=== PATIENT | male | born 1945 | race Caucasian/White ===

== ENCOUNTER 2018-04-01 16:26 | Inpatient (IN) ==
--- NOTE | 2018-04-01 16:48 | Emergency Department Note ---
ED Disposition Clinical Impression: Pneumonia, Pleural effusion, Elevated brain natriuretic peptide (BNP) level, Renal insufficiency Disposition: Admitted as Observation Condition on Discharge: Good Referrals: Dion Torres MD [Primary Care Provider] - - Critical Care Critical Care Time: No Attestation: On , the high probability of a clinically significant, sudden or life threatening deterioration of the following system(s) required my full and direct attention, intervention and personal management. The time I documented below is in addition to time spent performing reported procedures but includes the following listed in this critical care notation. Medical Decision Making - Medical Records MR Comment: 546pm cipriano Wolff pt has appointment tommorrow with Margarita MAHONEY, but has not seen Margarita yet. Accepts in admission for Margarita MAHONEY. IVF and antibiotics. - Francis Inquiry Pt receiving controlled substance: No Vital Signs: 04/01/18 16:33 Temperature 97.8 F Temperature Source Oral Pulse Rate [Right Radial] 65 Respiratory Rate 22 Blood Pressure [Right Arm] 109/84 Blood Pressure Mean [Right Arm] 92 Blood Pressure Source [Right Arm] Automatic Cuff Blood Pressure Position [Right Arm] Sitting 02 Sat by Pulse Oximetry 99 Oxygen Delivery Method Room Air - Lab Data Lab Results 04/01/18 16:45: WBC 12.7 H, RBC 4.09 L, Hgb 11.7 L, Hct 38.0 L, MCV 93.0, MCH 28.6, MCHC 30.8 L, RDW 14.9, Plt Count 419, MPV 8.6, Neut % (Auto) 80.1 H, Lymph % (Auto) 13.5, [place] % (Auto) 5.1, Eos % (Auto) 1.0, Baso % (Auto) 0.3, Neut # (Auto) 10.1 H, Lymph # (Auto) 1.7, [place] # (Auto) 0.7, Eos # (Auto) 0.1, Baso # (Auto) 0.0 04/01/18 16:45: PT 12.3 H, INR 1.14 H, APTT 31.6 04/01/18 16:45: Sodium 133 L, Potassium 4.2, Chloride 99, Carbon Dioxide 24, Anion Gap 14.2, BUN 66 H, Creatinine 1.74 H, Estimated Creat Clear 32, Estimated GFR 39 L, Est GFR ( Amer) 47 L, Glucose 261 H, Calcium 9.6, Total Bilirubin 0.5, AST 23, ALT 22, Alkaline Phosphatase 142 H, Troponin I 0.06 , Total Protein 7.2, Albumin 2.6 L, Globulin 4.6 H, Albumin/Globulin Ratio 0.6 L , Lipase 153 04/01/18 16:45: B-Natriuretic Peptide 1190 H Result diagrams: 04/01/18 16:45 04/01/18 16:45 Orders (Tests/Meds): ED MEDICATIONS Generic Name Dose Route Start Last Admin Trade Name Lanre PRN Reason Stop Dose Admin Sodium Chloride 1,000 mls @ 999 mls/hr 04/01/18 17:30 Sod Chlor 0.9% 1000ml Bag IV 04/01/18 18:30 .[id number] ARIEL Levofloxacin/Dextrose 750 mg in 150 mls @ 100 mls/hr 04/01/18 17:45 Levofloxacin 750mg/150ml Premix IV 04/15/18 17:44 Q24H ARIEL Protocol ORDERS Category Date Time Status Lactic Acid Stat Lab 04/01/18 17:40 Ordered Urinalysis and Microscopic Stat Lab 04/01/18 16:50 Ordered Blood Culture Stat Micro 04/01/18 17:40 Ordered General Adult HPI - General Stated complaint: weakness,Sugar is High Time Seen by Provider: 04/01/18 16:42 - History of Present Illness HPI narrative: Patient is brought in for weakness he has become weak all over for the past does also get some chronic weakness and chronic weight loss that happened over the past year. He states he is so weak. He slid out of a chair and was not able to get back up. No focal weakness no falls no trauma. He states he has a minimal cough he denies any pain no headache chest pain or abdominal pain. No urinary complaints just progressive weakness and malaise and his sugars have been elevated as well - Related Data Home Medications Medication Instructions Recorded Confirmed Apixaban [Eliquis] 2.5 mg PO BID 04/01/18 04/01/18 Ascorbic Acid [Vitamin C] 500 mg PO DAILY 04/01/18 04/01/18 Aspirin [Aspirin 81mg EC Tab] 81 mg PO DAILY 04/01/18 04/01/18 Duloxetine HCl 60 mg PO DAILY 04/01/18 04/01/18 Gabapentin [Gabapentin 400mg Cap] 400 mg PO BID 04/01/18 04/01/18 Insulin Glargine,Hum.rec.anlog 32 unit SQ DAILY 04/01/18 04/01/18 [[place] Solostar] Minocycline HCl [Minocin 100mg 100 mg PO DAILY 04/01/18 04/01/18 capsule] Multivit with Iron-Minerals 1 each PO DAILY 04/01/18 04/01/18 [Centravites 50 Plus] Simvastatin [Zocor] 20 mg PO DAILY 04/01/18 04/01/18 Tamsulosin HCl [Flomax 0.4mg 0.4 mg PO HS 04/01/18 04/01/18 capsule] Zinc Sulfate [Zinc Sulfate 220mg 220 mg PO DAILY 04/01/18 04/01/18 capsule] Allergies Allergy/AdvReac Type Severity Reaction Status Date / Time No Known Allergies Allergy Verified 04/01/18 16:43 [facility] History I have reviewed the patient's past medical history: Yes ROS Obtained: Yes All systems reviewed & no additional complaints Physical Exam General Appearance: Nontoxic Head: Normocephalic, without obvious abnormality, atraumatic. Eyes: conjunctiva/corneas clear ENT: Mucous membranes dry. Neck: No jugular venous distention. Cardiac: regular rate and rhythm Lungs: Clear to auscultation bilaterally Abdomen: Nontender, Nondistended, positive bowel sounds, no rebound : No CVA tenderness Extremities: no edema Musculoskeletal: No chest wall tenderness Skin: No rashes or lesions to exposed skin. Neurologic: Alert. Alert and oriented x3 Cranial nerves intact Strength 5 out of 5 Sensation intact to light touch Psychiatric: Normal affect - General General appearance: alert - Respiratory Respiratory exam: Present: normal lung sounds bilaterally - Cardiovascular Cardiovascular exam: Present: regular rate - Neurological Exam Neurological exam: Present: alert
[2018-04-01 17:04] LABS: Basophils % 0.3 % (0.1-2.0); Eosinophils # 0.1 K/mm3 (0.0-0.4); Hemoglobin 11.7 g/dL (14.1-18.0); Lymphocytes # 1.7 K/mm3 (0.7-4.5); Lymphocytes % 13.5 K/mm3 (10-50); Mean Corpuscular HGB Conc 30.8 g/dL (31.8-35.4); Mean Corpuscular Hemoglobin 28.6 pg (27.0-31.2); Mean Platelet Volume 8.6 fl (7.4-10.4); Monocytes # 0.7 K/mm3 (0.1-1.0); Monocytes % 5.1 % (1.7-9.3); Neutrophils # 10.1 K/mm3 (1.8-7.8); Neutrophils % 80.1 % (37.0-80.0); Platelet Count 419 K/mm3 (142-424); Red Blood Count 4.09 M/mm3 (4.60-6.20); Red Cell Distribution Width 14.9 % (11.5-17.5); White Blood Count 12.7 K/mm3 (4.8-10.8)
[2018-04-01 17:10] LABS: Activated Partial Thrombo Time 31.6 seconds (23.6-34.0); INR 1.14 (0.9-1.1); Prothrombin Time 12.3 seconds (9.4-11.8)
[2018-04-01 17:16] LABS: Albumin Level 2.6 gm/dL (3.4-5.0); Albumin/Globulin Ratio 0.6 (1.1-1.8); Anion Gap 14.2 mEq/L (5-15); Bilirubin,Total 0.5 mg/dL (0.2-1.0); Calcium 9.6 mg/dL (8.5-10.1); Globulin 4.6 gm/dl (1.3-3.2); Potassium 4.2 mmoL/L (3.5-5.1); Total Protein,Serum 7.2 gm/dL (6.4-8.2)
--- NOTE | 2018-04-01 21:50 | Pharmacy Consult Notes ---
[facility] Pharmacy VTE Monitoring - Patient Demographics Admission date: 04/01/18 Report Date: 04/01/18 Time: 21:50 Allergies/Adverse Reactions: Patient Allergies No Known Allergies Allergy (Verified 04/01/18 16:43) Height: 1.85 m Weight: 61.235 kg Patient Problems: Current Active Problems Pneumonia (Acute) Pleural effusion (Acute) Elevated brain natriuretic peptide (BNP) level (Acute) Renal insufficiency (Acute) - VTE Risk Labs: VTE Related Lab Results Hgb 11.7 g/dL (14.1-18.0) L 04/01/18 16:45 Hct 38.0 % (42.0-52.0) L 04/01/18 16:45 Plt Count 419 K/mm3 (142-424) 04/01/18 16:45 PT 12.3 seconds (9.4-11.8) H 04/01/18 16:45 INR 1.14 (0.9-1.1) H 04/01/18 16:45 APTT 31.6 seconds (23.6-34.0) 04/01/18 16:45 BUN 66 mg/dL (7-18) H 04/01/18 16:45 Creatinine 1.74 mg/dL (0.70-1.30) H 04/01/18 16:45 Estimated Creat Clear 32 mL/min (0-300) 04/01/18 16:45 Was VTE Risk Assessment Performed: Yes VTE Score: 6 VTE Risk Level: Moderate Risk Clinical Trial Participant: No - Prophylaxis VTE Prophylaxis Ordered?: Yes Types of VTE Prophylaxis: TEDS Knee High
[2018-04-02 04:43] LABS: Appearance,Urine CLEAR (Clear); Bilirubin,Urine Negative (Negative); Blood, Urine 1+ (Negative); Color,Urine YELLOW (Yellow); Glucose,Urine (UA) TRACE (Negative); Ketones,Urine Negative (Negative); Leukocyte Esterase,Urine 1+ (Negative); Microscopic, Urine URINE MICROSCOPIC (MICROSCOPIC); PH,Urine 5.5 (5.0-8.5); Protein,Urine 1+ (Negative); Urobilinogen,Urine 0.2 EU/dl (0.2)
[2018-04-02 04:55] LABS: Bacteria,Urine 1+ /lpf; Squamous Epithelial Cell,Urine Occasional #/hpf (0-5)
[2018-04-02 06:14] LABS: Albumin Level 2.1 gm/dL (3.4-5.0); Albumin/Globulin Ratio 0.5 (1.1-1.8); Anion Gap 11.1 mEq/L (5-15); Bilirubin,Total 0.4 mg/dL (0.2-1.0); Calcium 8.9 mg/dL (8.5-10.1); Potassium 4.1 mmoL/L (3.5-5.1); Total Protein,Serum 6.1 gm/dL (6.4-8.2)
--- NOTE | 2018-04-02 07:54 | History & Physical Report ---
*Admission Date: 04/01/18 *Chief complaint: Shortness of air/fatigue *History of present illness: 72-year-old white male who recently moved from [place] to live with his daughter and son-in-law, who has a long medical history of cardiac dysrhythmia status post pacemaker implantation and worsening weakness and senile cachexia with protein calorie malnutrition, who was brought to the emergency department because of lethargy, fatigue, dyspnea and cough. In the emergency department he was found to have a pleural effusion bilaterally , evidence of COPD-of which he is unaware-and elevated BNP levels with pulmonary infiltrate. He was also found to be hyperglycemic -does have type 2 diabetes. He was admitted for IV antibiotics, pulmonary toilet, IV fluids given his acute kidney injury. [facility] History Medical History: Reports:: Arrhythmia, Atherosclerotic Heart Disease, Atrial Fibrillation, Cardiomyopathy, Congestive Heart Failure, Coronary Artery Disease , Diabetes Mellitus Type 2, Heart Murmur, Internal Pacemaker, Myocardial Infarction, Palpitations, Peripheral Artery Disease Denies:: Cancer, Diabetes Mellitus Type 1, MRSA Other Medical History: Reports: Cataracts, Glaucoma, Hoarseness Laterality Cases: Bilateral: Tonsillectomy Other Surgeries: Yes: CABG, Open Heart Surgery, Pacemaker Amputation: No Fractures: No - *Social History Smoking Status: Current every day smoker Tobacco Type: cigarettes # Packs/Day (cigarettes): 1 Alcohol Intake: never Alcohol Intake Frequency:: holidays/special occasions only Occupational Status: retired Housing: apartment Household Members: none - Psychiatric History Expresses thoughts of harming self/others: None Suicide Plan Description: No Plan *Family Hx:: No significant family history Review of Systems - Constitutional Reports anorexia, Reports body ache(s), Denies chills, Denies daytime sleepiness - Eyes Denies blind spots, Denies blurry vision, Denies change in vision - ENT Denies abnormal hearing, Denies bleeding gums - *Cardiovascular Reports shortness of breath, Reports shortness of breath with activity, Reports shortness of breath when lying down, Denies chest pain, Denies chest pain at rest, Denies irregular heart rhythm - *Respiratory Reports chest congestion, Reports cough, Reports shortness of breath, Denies change in phlegm color - *Gastrointestinal Denies abdominal pain, Denies belching - *Genitourinary Denies difficulty urinating - *Musculoskeletal Denies abnormal walking, Denies joint pain - *Neurologic Reports abnormal walking, Reports frequent falls, Reports weakness, Denies seizure-like activity Meds Home Medications Medication Instructions Recorded Confirmed Type Apixaban [Eliquis] 2.5 mg PO BID 04/01/18 04/01/18 History Ascorbic Acid [Vitamin C] 1,000 mg PO DAILY 04/01/18 04/01/18 History Aspirin [Aspirin 81mg EC Tab] 81 mg PO DAILY 04/01/18 04/01/18 History Duloxetine HCl 60 mg PO DAILY 04/01/18 04/01/18 History Gabapentin [Gabapentin 400mg Cap] 400 mg PO BID 04/01/18 04/01/18 History Insulin Glargine,Hum.rec.anlog 32 unit SQ DAILY 04/01/18 04/01/18 History [[place] Solostar] Minocycline HCl [Minocin 100mg 100 mg PO DAILY 04/01/18 04/01/18 History capsule] Multivit with Iron-Minerals 1 each PO DAILY 04/01/18 04/01/18 History [Centravites 50 Plus] Simvastatin [Zocor] 20 mg PO HS 04/01/18 04/01/18 History Tamsulosin HCl [Flomax 0.4mg 0.4 mg PO HS 04/01/18 04/01/18 History capsule] Zinc Sulfate [Zinc Sulfate 220mg 220 mg PO DAILY 04/01/18 04/01/18 History capsule] Allergies Allergy/AdvReac Type Severity Reaction Status Date / Time No Known Allergies Allergy Verified 04/01/18 16:43 Exam Vital signs and Labs for Last 24 Hours: Temp Pulse Resp BP Pulse Ox 98.2 F 60 20 135/72 99 04/02/18 07:18 04/02/18 07:18 04/02/18 07:18 04/02/18 07:18 04/02/18 07:18 Laboratory Results - last 24 hr 04/01/18 16:45: WBC 12.7 H, RBC 4.09 L, Hgb 11.7 L, Hct 38.0 L, MCV 93.0, MCH 28.6, MCHC 30.8 L, RDW 14.9, Plt Count 419, MPV 8.6, Neut % (Auto) 80.1 H, Lymph % (Auto) 13.5, [place] % (Auto) 5.1, Eos % (Auto) 1.0, Baso % (Auto) 0.3, Neut # (Auto) 10.1 H, Lymph # (Auto) 1.7, [place] # (Auto) 0.7, Eos # (Auto) 0.1, Baso # (Auto) 0.0 04/01/18 16:45: PT 12.3 H, INR 1.14 H, APTT 31.6 04/01/18 16:45: Sodium 133 L, Potassium 4.2, Chloride 99, Carbon Dioxide 24, Anion Gap 14.2, BUN 66 H, Creatinine 1.74 H, Estimated Creat Clear 32, Estimated GFR 39 L, Est GFR ( Amer) 47 L, Glucose 261 H, Calcium 9.6, Total Bilirubin 0.5, AST 23, ALT 22, Alkaline Phosphatase 142 H, Troponin I 0.06 , Total Protein 7.2, Albumin 2.6 L, Globulin 4.6 H, Albumin/Globulin Ratio 0.6 L , Lipase 153 04/01/18 16:45: B-Natriuretic Peptide 1190 H 04/01/18 18:04: Lactic Acid 1.2 04/02/18 04:34: Urine Color Yellow, Urine Appearance Clear, Urine pH 5.5, Ur Specific [place] 1.020, Urine Protein 1+, Urine Glucose (UA) Trace, Urine Ketones Negative, Urine Blood 1+, Urine Nitrate Negative, Urine Bilirubin Negative, Urine Urobilinogen 0.2, Ur Leukocyte Esterase 1+ A, Urine RBC 5-10, Urine WBC 10-20, Ur Squamous Epith Cells Occasional, Urine Bacteria 1+ 04/02/18 05:20: Sodium 136, Potassium 4.1, Chloride 103, Carbon Dioxide 26, Anion Gap 11.1, BUN 56 H, Creatinine 1.48 H, Estimated Creat Clear 38, Estimated GFR 46 L, Est GFR ( Amer) 56 L, Glucose 185 H D, Calcium 8.9, Magnesium 1.5, Total Bilirubin 0.4, AST 22, ALT 23, Alkaline Phosphatase 116, Total Protein 6.1 L, Albumin 2.1 L D, Globulin 4.0 H, Albumin/Globulin Ratio 0.5 L 04/02/18 06:13: POC Glucose 190 H I & O for Last 24 hours: Intake & Output 05/03/31/18 04/01/18 04/02/18 11:59 11:59 11:59 11:59 Output Total 500 / 500 Balance -500 / -500 Weight 135 lb Narrative: Patient appears frail, but is alert, oriented 3 and states he feels better than yesterday on ER presentation. Lungs have rhonchi in both lower lung mello, some diminished air movement in both bases. Heart rate regular with 2/6 holosystolic murmur. Pacemaker site in the left upper chest wall is intact. Abdomen is soft and scaphoid. He has no edema or clubbing noted. No perfusion deficits. Able to move all 4 extremities equally. Is globally weak however. Cranial nerves are intact. H&P: Result - Labs Labs: Short CBC 04/01/18 Range/Units 16:45 WBC 12.7 H (4.8-10.8) K/mm3 Hgb 11.7 L (14.1-18.0) g/dL Hct 38.0 L (42.0-52.0) % Plt Count 419 (142-424) K/mm3 BMP 04/01/18 04/02/18 16:45 05:20 Sodium 133 L 136 Potassium 4.2 4.1 Chloride 99 103 Carbon Dioxide 24 26 BUN 66 H 56 H Creatinine 1.74 H 1.48 H Glucose 261 H 185 H D Calcium 9.6 8.9 Cardiac Enzymes 04/01/18 Range/Units 16:45 Troponin I 0.06 (0.00-0.06) ng/ml Liver Function 04/01/18 04/02/18 Range/Units 16:45 05:20 Total Bilirubin 0.5 0.4 (0.2-1.0) mg/dL AST 23 22 (15-37) U/L ALT 22 23 (12-78) U/L Alkaline Phosphatase 142 H 116 (46-116) U/L Albumin 2.6 L 2.1 L D (3.4-5.0) gm/dL Urine 04/02/18 Range/Units 04:34 Urine Color Yellow (Yellow) Urine Appearance Clear (Clear) Urine pH 5.5 (5.0-8.5) Ur Specific [place] 1.020 (1.005-1.030) Urine Protein 1+ (Negative) Urine Glucose (UA) Trace (Negative) Assessment and Plan (1) Acute kidney injury Current visit: Yes Status: Acute Category: Medical Code(s): N17.9 - Acute kidney failure, unspecified Improving this morning on lab work. Continue to follow with labs tomorrow. (2) Insulin-requiring or dependent type II diabetes mellitus Current visit: Yes Status: Acute Category: Medical Code(s): E11.9 - Type 2 diabetes mellitus without complications; Z79.4 - group home (current) use of insulin Glucose improving overnight. Continue to observe. (3) COPD (chronic obstructive pulmonary disease) Current visit: Yes Status: Acute Category: Medical Code(s): J44.9 - Chronic obstructive pulmonary disease, unspecified Patient unaware of diagnosis. Clearly has COPD pattern. Start inhaler, check CT scan given abnormal findings and long history of smoking. (4) Elevated brain natriuretic peptide (BNP) level Current visit: Yes Status: Acute Category: Medical Code(s): R79.89 - Other specified abnormal findings of blood chemistry Possible CHF given his BNP levels and pleural effusions. Check echocardiogram. (5) Pleural effusion Current visit: Yes Status: Acute Category: Medical Code(s): J90 - Pleural effusion, not elsewhere classified Plan as above. (6) Pneumonia Current visit: Yes Status: Acute Category: Medical Code(s): J18.9 - Pneumonia, unspecified organism Continue current Levaquin therapy.
--- NOTE | 2018-04-03 06:03 | Progress Note ---
Internal Medicine - PN: Subj *Date: 04/03/18 *Time: 06:01 Interval history: Patient ate well yesterday, breathing is somewhat better. Exam Vital signs and Labs for Last 24 Hours: Temp Pulse Resp BP Pulse Ox 97.1 F L 63 20 124/53 96 04/03/18 04:00 04/03/18 04:00 04/03/18 04:00 04/03/18 04:00 04/03/18 04:00 Laboratory Results - last 24 hr 04/02/18 05:20: Sodium 136, Potassium 4.1, Chloride 103, Carbon Dioxide 26, Anion Gap 11.1, BUN 56 H, Creatinine 1.48 H, Estimated Creat Clear 38, Estimated GFR 46 L, Est GFR ( Amer) 56 L, Glucose 185 H D, Calcium 8.9, Magnesium 1.5, Total Bilirubin 0.4, AST 22, ALT 23, Alkaline Phosphatase 116, Total Protein 6.1 L, Albumin 2.1 L D, Globulin 4.0 H, Albumin/Globulin Ratio 0.5 L 04/02/18 06:13: POC Glucose 190 H 04/02/18 11:30: POC Glucose 245 H 04/02/18 16:24: POC Glucose 128 H 04/02/18 20:27: POC Glucose 115 H I & O for Last 24 hours: Intake & Output 03/31/18 04/01/18 04/02/18 04/03/18 11:59 11:59 11:59 11:59 Intake Total 2025 / 2025 Output Total 500 / 500 1500 / 1500 Balance -500 / -500 526 / 526 Weight 135 lb 135 lb 0.001 oz Microbiology Reports for the Last 24 Hours: Microbiology 04/02/18 04:34 Urine,Clean Catch Urine Culture - Preliminary NO GROWTH AFTER 24 HOURS Narrative: Sleeping comfortably, when awakened feels good, no complaints. Lungs have much better air entry bilaterally, heart rate regular. Appears less dehydrated. Abdomen soft. Assessment and Plan (1) Acute kidney injury Current visit: Yes Status: Acute Category: Medical Code(s): N17.9 - Acute kidney failure, unspecified (2) Insulin-requiring or dependent type II diabetes mellitus Current visit: Yes Status: Acute Category: Medical Code(s): E11.9 - Type 2 diabetes mellitus without complications; Z79.4 - terminal system operator (current) use of insulin (3) COPD (chronic obstructive pulmonary disease) Current visit: Yes Status: Acute Category: Medical Code(s): J44.9 - Chronic obstructive pulmonary disease, unspecified (4) Elevated brain natriuretic peptide (BNP) level Current visit: Yes Status: Acute Category: Medical Code(s): R79.89 - Other specified abnormal findings of blood chemistry (5) Pleural effusion Current visit: Yes Status: Acute Category: Medical Code(s): J90 - Pleural effusion, not elsewhere classified (6) Pneumonia Current visit: Yes Status: Acute Category: Medical Code(s): J18.9 - Pneumonia, unspecified organism - Assessment and plan all Dx Assessment and Plan for all problems:: Patient improving. Continue current therapy/antibiotics for pneumonia. PT consult reviewed. Patient is interested in pursuing a short-term rehabilitation stay for weakness. Care management consultation. I reviewed CT report showing round pneumonia versus mass. I did not discuss this with the patient as of yet. He will need a pulmonary consultation.
[2018-04-03 06:55] LABS: Basophils % 0.1 % (0.1-2.0); Eosinophils # 0.1 K/mm3 (0.0-0.4); Eosinophils % 0.5 % (0.1-12.0); Hematocrit 38.4 % (42.0-52.0); Hemoglobin 11.5 g/dL (14.1-18.0); Lymphocytes # 1.3 K/mm3 (0.7-4.5); Lymphocytes % 9.7 K/mm3 (10-50); Mean Corpuscular HGB Conc 29.9 g/dL (31.8-35.4); Mean Corpuscular Hemoglobin 28.5 pg (27.0-31.2); Mean Corpuscular Volume 95.3 fl (80-94); Mean Platelet Volume 8.7 fl (7.4-10.4); Monocytes # 0.7 K/mm3 (0.1-1.0); Neutrophils % 84.7 % (37.0-80.0); Platelet Count 344 K/mm3 (142-424); Red Blood Count 4.03 M/mm3 (4.60-6.20); Red Cell Distribution Width 14.8 % (11.5-17.5)
[2018-04-03 07:10] LABS: Albumin Level 2.4 gm/dL (3.4-5.0); Albumin/Globulin Ratio 0.6 (1.1-1.8); Anion Gap 11.4 mEq/L (5-15); Bilirubin,Total 0.4 mg/dL (0.2-1.0); Calcium 9.3 mg/dL (8.5-10.1); Globulin 4.2 gm/dl (1.3-3.2); Potassium 4.4 mmoL/L (3.5-5.1); Total Protein,Serum 6.6 gm/dL (6.4-8.2)
--- NOTE | 2018-04-04 08:03 | Progress Note ---
Internal Medicine - PN: Subj *Date: 04/04/18 *Time: 08:02 Interval history: Patient overall feels better, eating well, no complaints of pain. Breathing is improved. Exam Vital signs and Labs for Last 24 Hours: Temp Pulse Resp BP Pulse Ox 98.2 F 60 20 143/73 96 04/04/18 07:18 04/04/18 07:18 04/04/18 07:18 04/04/18 07:18 04/04/18 07:18 Laboratory Results - last 24 hr 04/03/18 11:14: POC Glucose 218 H 04/03/18 16:37: POC Glucose 232 H 04/03/18 20:47: POC Glucose 178 H 04/04/18 06:09: POC Glucose 136 H I & O for Last 24 hours: Intake & Output 04/01/18 04/02/18 04/03/18 04/04/18 11:59 11:59 11:59 11:59 Intake Total 6 / 2026 2521 / 2521 Output Total 500 / 500 1500 / 1500 1200 / 1200 Balance -500 / -500 526 / 526 1321 / 1321 Weight 135 lb 135 lb 0.001 oz Microbiology Reports for the Last 24 Hours: Microbiology 04/01/18 18:04 Blood Blood Culture - Preliminary NO GROWTH AFTER 48 HOURS 04/01/18 18:04 Blood Blood Culture - Preliminary NO GROWTH AFTER 48 HOURS 04/02/18 04:34 Urine,Clean Catch Urine Culture - Final Multiple organisms, suggests contamination. Narrative: Patient appears weak still, and cachectic. Lungs are better with only minimal rhonchi in both bases. Heart rate regular. Abdomen soft and nontender. Assessment and Plan (1) Acute kidney injury Current visit: Yes Status: Acute Category: Medical Code(s): N17.9 - Acute kidney failure, unspecified (2) Insulin-requiring or dependent type II diabetes mellitus Current visit: Yes Status: Acute Category: Medical Code(s): E11.9 - Type 2 diabetes mellitus without complications; Z79.4 - [facility] (current) use of insulin (3) COPD (chronic obstructive pulmonary disease) Current visit: Yes Status: Acute Category: Medical Code(s): J44.9 - Chronic obstructive pulmonary disease, unspecified (4) Elevated brain natriuretic peptide (BNP) level Current visit: Yes Status: Acute Category: Medical Code(s): R79.89 - Other specified abnormal findings of blood chemistry (5) Pleural effusion Current visit: Yes Status: Acute Category: Medical Code(s): J90 - Pleural effusion, not elsewhere classified (6) Pneumonia Current visit: Yes Status: Acute Category: Medical Code(s): J18.9 - Pneumonia, unspecified organism (7) Pulmonary mass Current visit: Yes Status: Acute Category: Medical Code(s): R91.8 - Other nonspecific abnormal finding of lung field Overall patient is improving. CT scan showed pulmonary mass -just with patient. He reports having a [facility] CAT scan at [facility] perhaps 1 year ago. We will try to get these records. Pulmonary consultation for bronchoscopy given his high risk for pulmonary malignancy. Echocardiogram today given his history of atrial fibrillation and pleural effusions.
[2018-04-05 07:12] LABS: Basophils % 0.2 % (0.1-2.0); Eosinophils # 0.1 K/mm3 (0.0-0.4); Eosinophils % 0.9 % (0.1-12.0); Hematocrit 35.5 % (42.0-52.0); Hemoglobin 10.6 g/dL (14.1-18.0); Lymphocytes # 1.2 K/mm3 (0.7-4.5); Lymphocytes % 12.5 K/mm3 (10-50); Mean Corpuscular HGB Conc 29.9 g/dL (31.8-35.4); Mean Corpuscular Hemoglobin 28.4 pg (27.0-31.2); Monocytes # 0.7 K/mm3 (0.1-1.0); Neutrophils # 7.6 K/mm3 (1.8-7.8); Neutrophils % 79.3 % (37.0-80.0); Platelet Count 316 K/mm3 (142-424); Red Blood Count 3.74 M/mm3 (4.60-6.20); Red Cell Distribution Width 14.8 % (11.5-17.5); White Blood Count 9.6 K/mm3 (4.8-10.8)
[2018-04-05 07:14] LABS: Anion Gap 14.9 mEq/L (5-15); Potassium 4.9 mmoL/L (3.5-5.1)
--- NOTE | 2018-04-05 07:43 | Progress Note ---
Internal Medicine - PN: Subj *Date: 04/05/18 *Time: 07:42 Interval history: Patient continues to feel weak, but breathing is improved. I discussed patient's CT with him and his son-in-law, and they understand the possible implications of the right lung mass. Exam Vital signs and Labs for Last 24 Hours: Temp Pulse Resp BP Pulse Ox 98.5 F 60 16 124/55 91 L 04/05/18 04:00 04/05/18 04:00 04/05/18 04:00 04/05/18 04:00 04/05/18 04:00 Laboratory Results - last 24 hr 04/03/18 06:11: POC Glucose 49 L* 04/03/18 06:13: POC Glucose 48 L* 04/04/18 12:04: POC Glucose 303 H* 04/04/18 16:48: POC Glucose 207 H 04/04/18 20:11: POC Glucose 169 H 04/05/18 06:20: WBC 9.6 D, RBC 3.74 L, Hgb 10.6 L, Hct 35.5 L, MCV 95.0 H, MCH 28.4, MCHC 29.9 L, RDW 14.8, Plt Count 316, MPV 9.0, Neut % (Auto) 79.3, Lymph % (Auto) 12.5, [place] % (Auto) 7.0, Eos % (Auto) 0.9, Baso % (Auto) 0.2, Neut # ( Auto) 7.6, Lymph # (Auto) 1.2, [place] # (Auto) 0.7, Eos # (Auto) 0.1, Baso # (Auto ) 0.0 04/05/18 06:20: Sodium 134 L, Potassium 4.9, Chloride 103, Carbon Dioxide 21 D , Anion Gap 14.9, BUN 44 H, Creatinine 1.60 H, Estimated Creat Clear 35, Estimated GFR 42 L, Est GFR ( Amer) 51 L, Glucose 176 H 04/05/18 06:32: POC Glucose 170 H I & O for Last 24 hours: Intake & Output 04/02/18 04/03/18 04/04/18 04/05/18 11:59 11:59 11:59 11:59 Intake Total 2025 / 2025 2521 / 2521 1649 / 1649 Output Total 500 / 500 1500 / 1500 1200 / 1200 1700 / 1700 Balance -500 / -500 526 / 526 1321 / 1321 -51 / -51 Weight 135 lb 135 lb 0.001 oz Narrative: Patient is very weak, needs assistance to roll over to have his posterior lung mello examined. Rhonchi bilaterally. Fairly good air entry. Heart rate regular. Abdomen soft and nontender. No edema noted. Assessment and Plan (1) Acute kidney injury Current visit: Yes Status: Acute Category: Medical Code(s): N17.9 - Acute kidney failure, unspecified (2) Insulin-requiring or dependent type II diabetes mellitus Current visit: Yes Status: Acute Category: Medical Code(s): E11.9 - Type 2 diabetes mellitus without complications; Z79.4 - custodial (current) use of insulin (3) COPD (chronic obstructive pulmonary disease) Current visit: Yes Status: Acute Category: Medical Code(s): J44.9 - Chronic obstructive pulmonary disease, unspecified (4) Elevated brain natriuretic peptide (BNP) level Current visit: Yes Status: Acute Category: Medical Code(s): R79.89 - Other specified abnormal findings of blood chemistry (5) Pleural effusion Current visit: Yes Status: Acute Category: Medical Code(s): J90 - Pleural effusion, not elsewhere classified (6) Pneumonia Current visit: Yes Status: Acute Category: Medical Code(s): J18.9 - Pneumonia, unspecified organism (7) Pulmonary mass Current visit: Yes Status: Acute Category: Medical Code(s): R91.8 - Other nonspecific abnormal finding of lung field - Assessment and plan all Dx Assessment and Plan for all problems:: Overall patient improving, continues to be very weak. We will research skilled care bed for tomorrow transfer for rehab. Pulmonary consultation tomorrow for lung mass.
--- NOTE | 2018-04-06 08:29 | Progress Note ---
Internal Medicine - PN: Subj *Date: 04/06/18 *Time: 08:29 Exam Vital signs and Labs for Last 24 Hours: Temp Pulse Resp BP Pulse Ox 97.8 F 60 18 140/84 93 L 04/06/18 07:31 04/06/18 07:31 04/06/18 07:31 04/06/18 07:31 04/06/18 07:31 Laboratory Results - last 24 hr 04/05/18 11:33: POC Glucose 307 H* 04/05/18 20:20: POC Glucose 164 H 04/06/18 06:03: POC Glucose 193 H I & O for Last 24 hours: Intake & Output 04/03/18 04/04/18 04/05/18 04/06/18 23:59 23:59 23:59 23:59 Intake Total 2176 / 2176 1561 / 1561 1569 / 1569 Output Total 1400 / 1400 1200 / 1200 500 / 500 380 / 380 Balance 776 / 776 361 / 361 1069 / 1069 -380 / -380 Assessment and Plan (1) Acute kidney injury Current visit: Yes Status: Acute Category: Medical Code(s): N17.9 - Acute kidney failure, unspecified (2) Insulin-requiring or dependent type II diabetes mellitus Current visit: Yes Status: Acute Category: Medical Code(s): E11.9 - Type 2 diabetes mellitus without complications; Z79.4 - assistant terminal manager (current) use of insulin (3) COPD (chronic obstructive pulmonary disease) Current visit: Yes Status: Acute Category: Medical Code(s): J44.9 - Chronic obstructive pulmonary disease, unspecified (4) Elevated brain natriuretic peptide (BNP) level Current visit: Yes Status: Acute Category: Medical Code(s): R79.89 - Other specified abnormal findings of blood chemistry (5) Pleural effusion Current visit: Yes Status: Acute Category: Medical Code(s): J90 - Pleural effusion, not elsewhere classified (6) Pneumonia Current visit: Yes Status: Acute Category: Medical Code(s): J18.9 - Pneumonia, unspecified organism (7) Pulmonary mass Current visit: Yes Status: Acute Category: Medical Code(s): R91.8 - Other nonspecific abnormal finding of lung field The patient's infection will respond to the chosen ABx?: Yes Is the patient receiving the right drug, dose, and route?: Yes Could a more targeted ABx be ordered?: No
--- NOTE | 2018-04-06 12:13 | Consult Report ---
*Admission Date: 04/01/18 *Chief complaint: I have some shadow on my lung. *History of present illness: Mr. 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 He had a stroke a few years ago, I believe which affected his left arm and hand. Weakness resolved but he feels that his hand is a little weaker here in the hospital. He was admitted here because of shortness of breath and weakness thought due to dehydration. However, a chest x-ray disclosed bilateral pleural effusions and a CT scan of the chest showed a right hilar mass. Mr. Bridges suffered a myocardial infarction in his late 30s and underwent a three-vessel CABG at that time. Diabetes was discovered around then , I believe has been quite difficult to control with frequent episodes of hyper and hypoglycemia. He is followed by cardiology at the [facility] and also saw an deer farmer there until a couple of years ago. Although he is breathless with ordinary activities of daily living when he is feeling good, he does take care of his home and goes out to visit friends. He normally goes to bed around 9 PM and stays up using Facebook until 3 in the morning. Then he sleeps till noon or 1. His appetite has been quite poor over the last year or 2 and he has lost more than 70 pounds. He has had no abdominal complaints other than constipation. He has little or no cough and no hemoptysis or chest pain. Mr. Bridges began smoking when he was 9 and still smokes about 1 package of cigarettes daily. [facility] History Medical History: Reports:: Arrhythmia, Atherosclerotic Heart Disease, Atrial Fibrillation, Cardiomyopathy, Congestive Heart Failure, Coronary Artery Disease , Diabetes Mellitus Type 2, Heart Murmur, Internal Pacemaker, Myocardial Infarction, Palpitations, Peripheral Artery Disease Denies:: Cancer, Diabetes Mellitus Type 1, MRSA Other Medical History: Reports: Cataracts, Glaucoma, Hoarseness Laterality Cases: Bilateral: Tonsillectomy Other Surgeries: Yes: CABG, Open Heart Surgery, Pacemaker Amputation: No Fractures: No - *Social History Smoking Status: Current every day smoker Tobacco Type: cigarettes # Packs/Day (cigarettes): 1 Alcohol Intake: never Alcohol Intake Frequency:: holidays/special occasions only Occupational Status: retired Housing: apartment Household Members: none Comment: Mr. Bridges is and lives alone. He has 2 daughters who are , 1 of whom is moving to [place] soon. He has 6 grandchildren all of whom are well. One son-in-law is with him at the bedside today. He works here at [facility] [employer]. Mr. Bridges worked for 37 years in the [employer] office at as a payroll benefits clerk. He retired when it became too stressful considering his heart disease. - Psychiatric History Expresses thoughts of harming self/others: None Suicide Plan Description: No Plan *Family Hx:: No significant family history Review of Systems - Constitutional Reports anorexia - *Cardiovascular Comments: see hpi - *Respiratory Comments: see hpi - *Gastrointestinal Comments: see hpi - *Neurologic Reports abnormal walking, Reports frequent falls, Reports weakness, Denies abnormal hearing, Denies seizure-like activity Meds Home Medications Medication Instructions Recorded Confirmed Type Apixaban [Eliquis] 2.5 mg PO BID 04/01/18 04/01/18 History Ascorbic Acid [Vitamin C] 1,000 mg PO DAILY 04/01/18 04/01/18 History Aspirin [Aspirin 81mg EC Tab] 81 mg PO DAILY 04/01/18 04/01/18 History Gabapentin [Gabapentin 400mg Cap] 400 mg PO BID 04/01/18 04/01/18 History Insulin Glargine,Hum.rec.anlog 32 unit SQ DAILY 04/01/18 04/01/18 History [[place] Solostar] Minocycline HCl [Minocin 100mg 100 mg PO DAILY 04/01/18 04/01/18 History capsule] Multivit with Iron-Minerals 1 each PO DAILY 04/01/18 04/01/18 History [Centravites 50 Plus] Simvastatin [Zocor] 20 mg PO HS 04/01/18 04/01/18 History Tamsulosin HCl [Flomax 0.4mg 0.4 mg PO HS 04/01/18 04/01/18 History capsule] Zinc Sulfate [Zinc Sulfate 220mg 220 mg PO DAILY 04/01/18 04/01/18 History capsule] Duloxetine HCl [Cymbalta 30mg 30 mg PO DAILY 04/02/18 04/02/18 History capsule] Allergies Allergy/AdvReac Type Severity Reaction Status Date / Time No Known Allergies Allergy Verified 04/01/18 16:43 Exam Vital signs and Labs for Last 24 Hours: Temp Pulse Resp BP Pulse Ox 97.7 F 61 18 151/73 95 04/06/18 11:56 04/06/18 11:56 04/06/18 11:56 04/06/18 11:56 04/06/18 11:56 Laboratory Results - last 24 hr 04/05/18 17:06: POC Glucose 199 H 04/05/18 20:20: POC Glucose 164 H 04/06/18 06:03: POC Glucose 193 H I & O for Last 24 hours: Intake & Output 04/03/18 04/04/18 04/05/18 04/06/18 23:59 23:59 23:59 23:59 Intake Total 2176 / 2176 1561 / 1561 1569 / 1569 Output Total 1400 / 1400 1200 / 1200 500 / 500 380 / 380 Balance 776 / 776 361 / 361 1069 / 1069 -380 / -380 Narrative: Mr. Bridges is a gaunt, bright eyed man who is lying in bed at 10 elevation in no acute distress. He is articulate, oriented and able to give a fairly clear history. HEENT: Prominent eyes; sclerae clear; conjunctivae pink; PERRLA; corneal arcus Neck: No JVD; no adenopathy. Chest: Symmetrical expansion; hyperresonance by percussion bilaterally; decreased breath sounds at both bases with inspiratory crackles to the mid scapula on the right. No wheezing. Abdomen: Bowel sounds diminished; soft, nontender, no masses or organomegaly. Skin: Sallow color Neurological: No asterixis; twitching of the small muscles of the hands. He can move all extremities. Musculoskeletal: Marked temporal wasting and wasting of the small muscles of the hands. Internal Medicine - CN: Reslt - Labs CBC & Chem 7: 04/05/18 06:20 04/05/18 06:20 - Imaging and Cardiology CT scan - chest Additional comments: I personally reviewed the CT scan of the chest which demonstrates a mass in the right middle lobe with distal pneumonia and evidence of subcarinal adenopathy. He has a patulous esophagus, evidence of coronary disease, bilateral pleural effusions and an AICD in place.. Assessment and Plan (1) Acute kidney injury Current visit: Yes Status: Acute Category: Medical Code(s): N17.9 - Acute kidney failure, unspecified (2) Insulin-requiring or dependent type II diabetes mellitus Current visit: Yes Status: Acute Category: Medical Code(s): E11.9 - Type 2 diabetes mellitus without complications; Z79.4 - long-term (current) use of insulin (3) COPD (chronic obstructive pulmonary disease) Current visit: Yes Status: Acute Category: Medical Code(s): J44.9 - Chronic obstructive pulmonary disease, unspecified (4) Elevated brain natriuretic peptide (BNP) level Current visit: Yes Status: Acute Category: Medical Code(s): R79.89 - Other specified abnormal findings of blood chemistry (5) Pleural effusion Current visit: Yes Status: Acute Category: Medical Code(s): J90 - Pleural effusion, not elsewhere classified (6) Pneumonia Current visit: Yes Status: Acute Category: Medical Code(s): J18.9 - Pneumonia, unspecified organism (7) Pulmonary mass Current visit: Yes Status: Acute Category: Medical Code(s): R91.8 - Other nonspecific abnormal finding of lung field - Assessment and plan all Dx Assessment and Plan for all problems:: Mr. Bridges has severe ischemic cardiomyopathy and diabetes complicated by neuropathy and chronic kidney disease. He has abnormalities on CT scan of the chest suggesting metastatic lung cancer. I discussed his wishes concerning identification of this problem and he decided he would like to know and would pursue treatment if offered. His son-in-law was in the room when he and I had this discussion. I recommended transfer to the [facility] for evaluation by pulmonary and by cardiology. Eliquis should be discontinued for a few days before bronchoscopy. He has other problems as well including anemia , the cause of which is not clear to me. I did not discuss smoking cessation with him today but would be happy to follow-up with him after further evaluation at . Thank you for the opportunity to participate in Mr. Bridges's care.
--- NOTE | 2018-04-06 14:13 | Progress Note ---
Internal Medicine - PN: Subj *Date: 04/06/18 *Time: 07:20 Interval history: Patient reports no improvement in shortness of breath. Continues to have poor appetite. Alert and oriented x3. Rate and rhythm regular. No LE edema. Lung sounds diminished throughout with scattered wheezes. Abdomen soft and nontender Exam Vital signs and Labs for Last 24 Hours: Temp Pulse Resp BP Pulse Ox 97.7 F 61 18 151/73 95 04/06/18 11:56 04/06/18 11:56 04/06/18 11:56 04/06/18 11:56 04/06/18 11:56 Laboratory Results - last 24 hr 04/05/18 17:06: POC Glucose 199 H 04/05/18 20:20: POC Glucose 164 H 04/06/18 06:03: POC Glucose 193 H 04/06/18 11:53: POC Glucose 314 H* I & O for Last 24 hours: Intake & Output 04/04/18 04/05/18 04/06/18 04/07/18 11:59 11:59 11:59 11:59 Intake Total 2671 / 2671 2049 / 2049 0 / 0 Output Total 1200 / 1200 1700 / 1700 380 / 380 Balance 1471 / 1471 349 / 349 -380 / -380 Assessment and Plan (1) Acute kidney injury Current visit: Yes Status: Acute Category: Medical Code(s): N17.9 - Acute kidney failure, unspecified (2) Insulin-requiring or dependent type II diabetes mellitus Current visit: Yes Status: Acute Category: Medical Code(s): E11.9 - Type 2 diabetes mellitus without complications; Z79.4 - retirement (current) use of insulin (3) COPD (chronic obstructive pulmonary disease) Current visit: Yes Status: Acute Category: Medical Code(s): J44.9 - Chronic obstructive pulmonary disease, unspecified (4) Elevated brain natriuretic peptide (BNP) level Current visit: Yes Status: Acute Category: Medical Code(s): R79.89 - Other specified abnormal findings of blood chemistry (5) Pleural effusion Current visit: Yes Status: Acute Category: Medical Code(s): J90 - Pleural effusion, not elsewhere classified (6) Pneumonia Current visit: Yes Status: Acute Category: Medical Code(s): J18.9 - Pneumonia, unspecified organism (7) Pulmonary mass Current visit: Yes Status: Acute Category: Medical Code(s): R91.8 - Other nonspecific abnormal finding of lung field - Assessment and plan all Dx Assessment and Plan for all problems:: Continue IV antibiotics. Dr. Morejon consult today. Transfer to [facility] verses d/c to [place] with outpatient FU at [facility] pending pulmonology consult.
[2018-04-06 15:24] VITALS: BP 141/78
--- NOTE | 2018-04-29 09:21 | Discharge Summary ---
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 He had a stroke a few years ago, I believe which affected his left arm and hand. Weakness resolved but he feels that his hand is a little weaker here in the hospital. He was admitted here because of shortness of breath and weakness thought due to dehydration. However, a chest x-ray disclosed bilateral pleural effusions and a CT scan of the chest showed a right hilar mass. Mr. Bridges suffered a myocardial infarction in his late 30s and underwent a three-vessel CABG at that time. Diabetes was discovered around then , I believe has been quite difficult to control with frequent episodes of hyper and hypoglycemia. He is followed by cardiology at the [facility] and also saw an automobile service station mechanic there until a couple of years ago. Although he is breathless with ordinary activities of daily living when he is feeling good, he does take care of his home and goes out to visit friends. He normally goes to bed around 9 PM and stays up using Facebook until 3 in the morning. Then he sleeps till noon or 1. His appetite has been quite poor over the last year or 2 and he has lost more than 70 pounds. He has had no abdominal complaints other than constipation. He has little or no cough and no hemoptysis or chest pain. Mr. Bridges began smoking when he was 9 and still smokes about 1 package of cigarettes daily. Hospital Course Hospital Course: Please see history above from Dr. Morejon's consult note. Also note my admission H&P document patient. Patient had been admitted for weight loss, hypoglycemia pneumonia. Pulmonary consultation was obtained and concerned about ongoing lung mass with need for bronchoscopy. As result of the pulmonary consultation recommendations patient was transferred to the [facility] pulmonary service for bronchoscopy and biopsies of his lung masses. Please see nurse's discharge note. Objective Vital signs: Temp Pulse Resp BP Pulse Ox 97.8 F 68 18 141/78 96 04/06/18 18:11 04/06/18 18:11 04/06/18 18:11 04/06/18 18:11 04/06/18 15:23 Narrative: Please see physical exam notes on the morning of April 06 DS: Diagnosis - Discharge Diagnosis (1) Acute kidney injury Status: Resolved (2) Insulin-requiring or dependent type II diabetes mellitus Status: Chronic (3) COPD (chronic obstructive pulmonary disease) Status: Chronic (4) Elevated brain natriuretic peptide (BNP) level Status: Resolved (5) Pleural effusion Status: Acute (6) Pneumonia Status: Acute (7) Pulmonary mass Status: Acute Discharge Plan - Patient Discharge Instructions Patient Instructions: High-Calorie, High-Protein Diet - Follow up Plan Disposition: Xfer Short-Term Hosp Home Medications: Home Medications Medication Instructions Recorded Confirmed Type Apixaban [Eliquis] 2.5 mg PO BID 04/01/18 04/01/18 History Ascorbic Acid [Vitamin C] 1,000 mg PO DAILY 04/01/18 04/01/18 History Aspirin [Aspirin 81mg EC Tab] 81 mg PO DAILY 04/01/18 04/01/18 History Gabapentin [Gabapentin 400mg Cap] 400 mg PO BID 04/01/18 04/01/18 History Insulin Glargine,Hum.rec.anlog 32 unit SQ DAILY 04/01/18 04/01/18 History [[place] Solostar] Minocycline HCl [Minocin 100mg 100 mg PO DAILY 04/01/18 04/01/18 History capsule] Multivit with Iron-Minerals 1 each PO DAILY 04/01/18 04/01/18 History [Centravites 50 Plus] Simvastatin [Zocor] 20 mg PO HS 04/01/18 04/01/18 History Tamsulosin HCl [Flomax 0.4mg 0.4 mg PO HS 04/01/18 04/01/18 History capsule] Zinc Sulfate [Zinc Sulfate 220mg 220 mg PO DAILY 04/01/18 04/01/18 History capsule] Duloxetine HCl [Cymbalta 30mg 30 mg PO DAILY 04/02/18 04/02/18 History capsule] Prescriptions/Medication Reconciliation: No Action Aspirin [Aspirin 81mg EC Tab] 81 mg PO DAILY Tamsulosin HCl [Flomax 0.4mg capsule] 0.4 mg PO HS Zinc Sulfate [Zinc Sulfate 220mg capsule] 220 mg PO DAILY Simvastatin [Zocor] 20 mg PO HS Minocycline HCl [Minocin 100mg capsule] 100 mg PO DAILY Insulin Glargine,Hum.rec.anlog [Jeanie Noel] 32 unit SQ DAILY Gabapentin [Gabapentin 400mg Cap] 400 mg PO BID Ascorbic Acid [Vitamin C] 1,000 mg PO DAILY Apixaban [Eliquis] 2.5 mg PO BID Duloxetine HCl [Cymbalta 30mg capsule] 30 mg PO DAILY Multivit with Iron-Minerals [Centravites 50 Plus] 1 each PO DAILY
== END 2018-04-06 19:29 | disposition short-term general hospital (02) ==
LOC: 2ND 16:26 → ER 16:26 → OBSVTOIN 18:59 → 2ND 19:00
PROVIDERS: ADMIT Family Medicine; ATTEND Internal Medicine Adolescent Medicine
CPT/HCPCS: 36415; 71010; 71045; 71260; 80048; 80053; 81001; 82947; 82962; 83605; 83690; 83735; 83880; 84484; 85025; 85610; 85730; 87040; 87086; 94640; 96365; 97116; 97162; 99284; J1956; Q9967

== ENCOUNTER → 2018-08-23 16:13 | Outpatient (CLI) | payer MEDICARE, BC, SELFPAY ==
--- NOTE | 2018-08-23 16:20 | XR_ITS ---
XR chest 2V HISTORY: ITS.REASON: DYSPNEA ON EXERTION ORDERING PHYSICIAN: Dion Torres MD PATIENT AGE: 72 years COMPARISON: 04/18/2018 FINDINGS: There is been a prior CABG. Bipolar pacer is present from left subclavian approach. No evidence of CHF. Previously noted pneumonia in the right lower lobe has improved. There are small bilateral pleural effusions left larger than right. No acute bony anomalies. IMPRESSION: 1. Prior CABG. 2. Small bilateral pleural effusions left larger than right
[2018-08-23 17:04] LABS: Basophils % 0.5 % (0.1-2.0); Eosinophils # 0.1 K/mm3 (0.0-0.4); Eosinophils % 1.3 % (0.1-12.0); Hematocrit 40.2 % (42.0-52.0); Hemoglobin 12.4 g/dL (14.1-18.0); Lymphocytes # 1.4 K/mm3 (0.7-4.5); Lymphocytes % 19.2 K/mm3 (10-50); Mean Corpuscular HGB Conc 30.9 g/dL (31.8-35.4); Mean Corpuscular Hemoglobin 29.8 pg (27.0-31.2); Mean Corpuscular Volume 96.7 fl (80-94); Mean Platelet Volume 8.2 fl (7.4-10.4); Monocytes # 0.3 K/mm3 (0.1-1.0); Monocytes % 4.5 % (1.7-9.3); Neutrophils # 5.5 K/mm3 (1.8-7.8); Neutrophils % 74.4 % (37.0-80.0); Platelet Count 267 K/mm3 (142-424); Red Blood Count 4.15 M/mm3 (4.60-6.20); Red Cell Distribution Width 14.8 % (11.5-17.5); White Blood Count 7.3 K/mm3 (4.8-10.8)
[2018-08-23 18:07] LABS: Alanine Aminotransferase 18 U/L (12-78); Albumin Level 2.6 gm/dL (3.4-5.0); Albumin/Globulin Ratio 0.7 (1.1-1.8); Alkaline Phosphatase 170 U/L (46-116); Anion Gap 8.8 mEq/L (5-15); Aspartate Amino Transferase 18 U/L (15-37); Bilirubin,Total 0.4 mg/dL (0.2-1.0); Blood Urea Nitrogen 40 mg/dL (7-18); Calcium 8.9 mg/dL (8.5-10.1); Carbon Dioxide 31 mmol/L (21.0-32.0); Chloride 105 mmol/L (98-107); Creatinine,Serum 1.64 mg/dL (0.70-1.30); Estimated Glomerular Filt Rate 41 ml/min (>60); GFR (African American) 50 ML/MIN (>60); Globulin 3.8 gm/dl (1.3-3.2); Glucose 298 mg/dL (74-106); Potassium 4.8 mmoL/L (3.5-5.1); Sodium 140 mmol/L (136-145); Total Protein,Serum 6.4 gm/dL (6.4-8.2)
== END ==
PROVIDERS: PCP Internal Medicine Adolescent Medicine; Visit Provider Internal Medicine Adolescent Medicine
DX: R06.09 Other forms of dyspnea (principal); C34.90 Malignant neoplasm of unspecified part of unspecified bronchus or lung
CPT/HCPCS: 36415; 71046; 80053; 85025